=== PATIENT | female | born 1985 | race Caucasian/White ===

== ENCOUNTER 2017-01-13 01:27 | Inpatient (IN) | payer OTHER ==
[~2017-01-13] VITALS: Ht 160 cm; Wt 144.8 kg
[~2017-01-13 01:27] MED LIST: PREN1CAP12 ODT; [UNRECOGNIZED DRUG - CODE] ODT
[2017-01-13 01:37] VITALS: Ht 160 cm; Wt 144.8 kg
[2017-01-13 01:38] VITALS: BP 123/64; PULSE 92; RESP 18
[2017-01-13] MEDS ORDERED: OXYTOCIN 30 UNITS/LR 500 ML IV PRN (02:00)
[2017-01-13] MEDS ORDERED: METHYLERGONOVINE 0.2 MG INJ IM PRN ×2 (02:00→06:30)
[2017-01-13] MEDS ORDERED: OXYTOCIN 30 UNITS/LR 500 ML IV SCH (02:00)
[2017-01-13] MEDS ORDERED: CARBOPROST 250 MCG INJ IM PRN ×2 (02:00→06:30)
[2017-01-13] MEDS ORDERED: CEFAZOLIN 2 GM/50 ML (PMX) 50 ML IV SCH (02:00)
[2017-01-13] MEDS ORDERED: MISOPROSTOL 200 MCG TAB PR PRN ×2 (02:00→06:30)
--- NOTE | 2017-01-13 02:03 | HP ---
Date/Time of Note Date/Time of Note DATE: 01/13/17 TIME: 01:59 OB - History Hx of Present Free Text/Dictation 31-year-old with IUP at 38 weeks and 4 days with care with [facility] presented with complaint of painful contractions. Her antepartum course complicated by GDM A1 as well as morbid obesity. Her AZALEA is January 23, 2017. Her GDM was diet-controlled. Her latest hemoglobin A1c was 5.7. She also desires to have bilateral tubal sterilization and has signed her consent and her visits. She was noted to have regular contractions every 2-3 minutes. Chief Complaint: Labor pain Estimated Due Date: Jan 23, 2017 : 5 Para: 4 Spontaneous : 0 Therapeutic : 0 Care: Good Care Obstetrical Complications: Gestational Diabetes Other Concerns: Morbid obesity Past Family/Social History * Past Medical, Surgical, Family and Obstetric Histories reviewed from chart. Blood Type: O+ Rubella: immune RPR/VDRL: Negative GBS Status: Unknown HBsAG: Negative OB Admission Exam Vital Signs Vital Signs Vital Signs Date Time Temp Pulse Resp B/P Pulse Ox O2 Delivery O2 Flow Rate FiO2 01/13/17 01:38 98.3 92 18 123/64 Room Air Physical Exam HEENT: WNL Heart: Rhythm Normal Lungs: Clear Abdomen: WNL Extremities: Edema (3+ bilateral symmetric nonpitting edema on lower extremity) Reflexes: Normal Cervical Dilatation: 1cm Effacement: 25% Station: -2 Membranes: Intact Heart Rate: 120's Accelerations: Accelerations Present Decelerations: Variable Decelerations Varibility: Moderate Contractions on Admission: < 5 Minutes Apart Intensity: Moderate OB Assessment/Plan Other Assessment: IUP at 38 weeks and 4 days History of prior Painful uterine contractions, desires to proceed with repeat section and bilateral tubal sterilization Risk and benefits of section including risk of infection, bleeding damage to surrounding structures including bowel and bladder and risk of blood transfusion including but not limited to blood borne infection including HIV, hepatitis B and C and transfusion reaction discussed with the patient in detail and informed consent was obtained. Risk of tubal sterilization including risk of failure as well as risk of ectopic for any failure occurs as well discussed with the patient. Patient verbalized understanding and all questions were answered to the patient' s best satisfaction. OR anesthesia and NICU were notified RITU CHANEY MD Jan 13, 2017 02:03
[2017-01-13] MEDS ORDERED: LACTATED RINGER'S 1,000 ML IV SCH (02:14)
[2017-01-13 02:22] LABS: ADD SCAN DIFF NO
[2017-01-13 02:24] LABS: BASOPHILS % 0.1 % (0.0-2.0); EOSINOPHILS # 0.1 10^3/ul (0.0-0.5); EOSINOPHILS % 0.7 % (0.0-7.0); HEMATOCRIT 36.5 % (37.0-47.0); LYMPHOCYTES # 1.7 10^3/ul (0.8-2.9); LYMPHOCYTES % 16.6 % (15.0-51.0); MEAN CORPUSCULAR HEMOGLOBIN 27.3 pg (29.0-33.0); MEAN CORPUSCULAR HGB CONC 32.9 g/dl (32.0-37.0); MEAN PLATELET VOLUME 11.5 fl (7.4-10.4); MONOCYTE # 0.7 10^3/ul (0.3-0.9); MONOCYTES % 6.9 % (0.0-11.0); NEUTROPHIL # 7.9 10^3/ul (1.6-7.5); NEUTROPHILS % 75.2 % (39.0-77.0); PLATELET COUNT 302 10^3/UL (140-415); RED CELL DISTRIBUTION WIDTH 15.5 % (11.5-14.5); WHITE BLOOD COUNT 10.5 10^3/ul (4.8-10.8)
[2017-01-13] MEDS ORDERED: ONDANSETRON 4 MG INJ IV PRN ×2 (02:30→06:30)
[2017-01-13] MEDS ORDERED: CITRIC ACID/NA CITRATE 30 ML CUP PO ONE (02:30)
[2017-01-13 02:35] LABS: INR 0.92; PROTIME 12.4 Sec (12.2-14.2)
[2017-01-13 02:36] LABS: PARTIAL THROMBOPLASTIN TIME 31.6 Sec (25.0-35.0)
--- NOTE | 2017-01-13 02:46 | TRIAGE ---
OB Triage Datetime Report Generated by CPN: 01/13/2017 02:46 Datetime: 01/13/2017 02:31 Assessment Type: Admission Assessment Maternal Assessment Level of Consciousness: Fully Conscious DTR's/Clonus: DTRs 2+ Headache: Denies Blurred Vision: Yes Breath Sounds, Left: Clear and Equal Breath Sounds, Right: Clear and Equal Nausea/Vomiting: Denies RUQ Epigastric Pain: Denies Lower Extremities Edema: None Degree: None Upper Extremities Edema: None Degree: None Facial Edema: None Labor Evaluation Frequency: 2-3 Duration (sec)2399: 60-80 Quality: Mild Pattern: Normal: <= 5 Contractions in 10 Minutes Pain Assessment Pain Scale: 7 Pain Presence: Intermittent Pain Type: Burning; Cramping; Sharp Membrane Status: Intact Datetime: 01/13/2017 02:20 Stage of : OB Triage Labor Evaluation Frequency: 2-3 Monitor Mode: External Duration (sec)2399: 50-80 Quality: Mild Pattern: Normal: <= 5 Contractions in 10 Minutes Resting Tone Forman: Relaxed Heart Rate FHR Baseline Rate: 140 Monitor Mode: External US Variability: Moderate 6-25 bpm Accelerations: 15X15 Decelerations: None Category: Category I Pain Assessment Pain Scale: 6 Pain Presence: Intermittent Pain Type: Cramping Pain Location: Abdomen Pain Relief Measures: Comfort Measures Datetime: 01/13/2017 02:15 Membrane Status: Intact Datetime: 01/13/2017 01:49 Assessment Type: Triage Maternal Assessment Level of Consciousness: Fully Conscious Headache: Denies Blurred Vision: No Respiratory Effort: Unlabored; Regular Rhythm; Equal Expansion Breath Sounds, Left: Clear and Equal Breath Sounds, Right: Clear and Equal Nausea/Vomiting: Denies RUQ Epigastric Pain: Denies Lower Extremities Edema: Bilateral Lower Extremities Upper Extremities Edema: Bilateral Upper Extremities (Annotations: MORBIDLY OBESE PT.) Facial Edema: None Fall Risk Assessment History of Falling: (0) No Secondary Diagnosis: (0) No Ambulatory Aid: (0) Bedrest/Nurse Assist IV Therapy: (0) No Gait: (0) Normal/Bedrest/Immobile Mental Status: (0) Oriented to Own Ability Fall Score: 0 Fall Risk Score Definition: No Risk: No action required Datetime: 01/13/2017 01:45 Time of Arrival: 01/13/2017 01:23 EGA: 38.4 Arrived By: Wheelchair Arrived From: Home Chief Complaint: CXS SINCE 2129 Movement: Present Contractions: Regular Time Contractions Began: 01/12/2017 21:30 Contractions: 2 MIN Rupture of Membranes: Unsure Vaginal Bleeding: None Vaginal Discharge: Present Patient Complaints: Contractions Time Provider Notified: 01/13/2017 01:40 Provider Notified: SHIV Initial Plan: EFM, ASSESSMENT, VE, CALLMD FOR ORDERS Datetime: 01/13/2017 01:39 Vaginal Exam Dilatation (cms): 1.0 Effacement (%): 30 Station: -3 Exam By: HUA Vaginal Bleeding: None Cervix, Consistency: Moderate Cervix, Position: Midposition
[2017-01-13] MEDS ORDERED: LACTATED RINGER'S 1,000 ML IV PRN (03:00)
[2017-01-13] MEDS ORDERED: morphine SULFATE/PF (10 MG/10 ML) INJ ONE (04:26)
[2017-01-13] MEDS ORDERED: FENTAnyl 50 MCG/ML VIAL ONE (04:26)
[2017-01-13] MEDS ORDERED: CEFAZOLIN 1 GM INJ ONE (05:07)
[2017-01-13] MEDS ORDERED: METOCLOPRAMIDE 10 MG INJ ONE (05:07)
[2017-01-13] MEDS ORDERED: PHENYLephrine (100 MCG/ML) 5ML SYG ONE ×2 (05:10→05:48)
--- NOTE | 2017-01-13 06:04 | OPR ---
Operative Report Planned Procedure Free Text/Dictation Patient with history of and at 38+ weeks with a complaint of painful contractions and for that reason she was candidate for urgent repeat section. She desires to proceed with bilateral tubal sterilization. Has signed consent for BTL in her visits. Discussed with the patient about the risk and benefit of procedure including risk of infection, bleeding damage to surrounding structures including bowel and bladder and risk of blood transfusion including but not limited to blood borne infection including HIV hepatitis B and C and transfusion reactions. Patient In case necessary. Risk of bilateral tubal sterilization including risk of failure less than 1% as well as risk of ectopic for any failure occurs discussed in detail. Informed consent was obtained. All questions were answered the patient's best satisfaction. Procedure date Jan 13, 2017 Procedure(s) Repeat section via Pfannenstiel skin incision and bilateral tubal sterilization with Sarai technique Performed by: RITU CHANEY MD Assisting provider: QUAN SAWYER MD Anesthesiologist: JOANN ALVARES MD Pre-procedure diagnosis IUP at 38 + weeks History of previous section desires to proceed with repeat section and bilateral tubal sterilization Anesthesia Type: spinal Procedure Description Under satisfactory [spinal] anesthesia, the patient was prepped and draped and placed in a supine position, tilted to the left. Pfannenstiel incision was made , carried through the subcutaneous tissue. Bleeders brought under control with electrocautery. Fascia incised to the length of the incision. Rectus muscles from the fascia, divided midline. Peritoneum exposed, entered through a transverse incision. Exploration of abdomen revealed gravid uterus. Bladder flap was developed. Transverse incision was made in the lower segment of the uterus. Amniotic sac ruptured. Particulate meconium amniotic fluid noted. Baby was in vertex presentation. Baby's head was brought up the incision and was delivered while the certified first assistant was pushing fundal pressure. After delivery of the head delivery of the anterior shoulder and then position within the rest of the body with gentle traction while the certified first assistant was applying fundal pressure was performed. And the baby delivered. Cord was clamped and cut. True knot was noted in the cord. Nasal oropharyngeal suction was performed. The baby was handed to the team for immediate attention. The placenta was delivered manually intact. Uterine cavity was cleaned with wet sponge and drainage established. Uterus closed in 2 layers using [1-0 Monocryl] in continuous fashion. The first layer used for hemostasis and the second layer used for imbrication peritoneal cavity irrigated with warm saline. Sponge, needle and instrument count reported to be correct. Abdominal peritoneum closed with [2-0 Vicryl] continuously. Rectus muscle approximated with 2-0 Vicryl. Fascia closed with 1-0 Vicryl, and skin closed with 3-0 Monocryl in a subcutaneous fashion. Estimated blood loss 500 mL. Post-Procedure Findings: Live Baby [], Apgars [] and [], weight [], position [], [] presentation []cord. Specimen description Cord blood Complications: None Pt Condition post procedure: stable Disposition: PACU Physician Certification I, the undersigned physician, hereby certify that I have discussed the procedure described in this consent form with this patient (or the patient's legal floor representative), including: * The risk and benefits of the procedure; * Any adverse reactions that may reasonably be expected to occur; * Any alternative efficacious methods of treatment which may be medically viable ; * The potential problems that may occur during recuperation; * Potential for blood transfusion and associated risks/benefits; and * Any research or economic interest I may have regarding this treatment. I further certify that the patient/legally responsible person was encouraged to ask question and that all questions were answered. RITU CHANEY MD Jan 13, 2017 06:04
[2017-01-13] MEDS ORDERED: PROCHLORPERAZINE 10 MG INJ IV PRN (06:30)
[2017-01-13] MEDS ORDERED: LANOLIN 7 GM TUBE TOP PRN (06:30)
[2017-01-13] MEDS ORDERED: HYDROmorphONE 1 MG/ML SYG IV PRN ×2 (06:30)
[2017-01-13] MEDS ORDERED: NALOXONE (0.4 MG/ML) INJ IV PRN (06:30)
[2017-01-13] MEDS ORDERED: DIPHENHYDRAMINE 50 MG INJ IV PRN (06:30)
[2017-01-13] MEDS: OXYTOCIN 30 UNITS/LR 500 ML IV PRN ×2 (09:00→14:06)
[2017-01-13 09:15] VITALS: BP 112/67; PULSE 85; RESP 20
[2017-01-13] MEDS: LACTATED RINGER'S 1,000 ML IV SCH ×3 (10:08→17:47)
[2017-01-13] MEDS: HEPARIN 5,000 UNIT/0.5 ML SYG SC SCH ×2 (10:09→22:36)
[2017-01-13 13:00] LABS: ADD SCAN DIFF NO
[2017-01-13 13:05] LABS: BASOPHILS % 0.1 % (0.0-2.0); EOSINOPHILS # 0.1 10^3/ul (0.0-0.5); EOSINOPHILS % 0.4 % (0.0-7.0); HEMATOCRIT 33.9 % (37.0-47.0); HEMOGLOBIN 11.1 g/dl (12.0-16.0); LYMPHOCYTES # 1.5 10^3/ul (0.8-2.9); LYMPHOCYTES % 12.6 % (15.0-51.0); MEAN CORPUSCULAR HEMOGLOBIN 27.3 pg (29.0-33.0); MEAN CORPUSCULAR HGB CONC 32.7 g/dl (32.0-37.0); MEAN CORPUSCULAR VOLUME 83.3 fl (82.0-101.0); MEAN PLATELET VOLUME 11.4 fl (7.4-10.4); MONOCYTE # 0.6 10^3/ul (0.3-0.9); MONOCYTES % 5.3 % (0.0-11.0); NEUTROPHIL # 9.5 10^3/ul (1.6-7.5); NEUTROPHILS % 81.1 % (39.0-77.0); PLATELET COUNT 249 10^3/UL (140-415); RED BLOOD COUNT 4.07 10^6/ul (4.20-5.40); RED CELL DISTRIBUTION WIDTH 15.2 % (11.5-14.5); WHITE BLOOD COUNT 11.7 10^3/ul (4.8-10.8)
[2017-01-13] MEDS: KETOROLAC 30 MG INJ IV PRN ×2 (14:07→21:50)
[2017-01-13 16:45] VITALS: BP 98/55; RESP 18
[2017-01-13 19:30] VITALS: BP 100/53; PULSE 90; RESP 18
[2017-01-14] MEDS: LACTATED RINGER'S 1,000 ML IV SCH ×3 (01:50→21:55)
[2017-01-14 04:00] VITALS: BP 108/55; PULSE 88; RESP 19
[2017-01-14] MEDS: IBUPROFEN 600 MG TAB PO SCH ×3 (05:36→18:05)
[2017-01-14 09:18] VITALS: BP 117/57; PULSE 97; RESP 20
[2017-01-14] MEDS: OXYCODONE/ACETAMINOPHEN (5/325) TAB PO PRN ×3 (09:31→18:06)
[2017-01-14] MEDS: HEPARIN 5,000 UNIT/0.5 ML SYG SC SCH ×2 (09:32→21:54)
[2017-01-14 11:38] LABS: ADD SCAN DIFF NO
[2017-01-14 11:42] LABS: BASOPHILS % 0.2 % (0.0-2.0); EOSINOPHILS # 0.1 10^3/ul (0.0-0.5); EOSINOPHILS % 0.5 % (0.0-7.0); HEMATOCRIT 30.9 % (37.0-47.0); HEMOGLOBIN 10.2 g/dl (12.0-16.0); LYMPHOCYTES # 1.3 10^3/ul (0.8-2.9); LYMPHOCYTES % 11.4 % (15.0-51.0); MEAN CORPUSCULAR HEMOGLOBIN 27.6 pg (29.0-33.0); MEAN CORPUSCULAR VOLUME 83.5 fl (82.0-101.0); MEAN PLATELET VOLUME 10.8 fl (7.4-10.4); MONOCYTE # 0.6 10^3/ul (0.3-0.9); MONOCYTES % 4.9 % (0.0-11.0); NEUTROPHIL # 9.5 10^3/ul (1.6-7.5); NEUTROPHILS % 82.5 % (39.0-77.0); PLATELET COUNT 221 10^3/UL (140-415); RED CELL DISTRIBUTION WIDTH 15.5 % (11.5-14.5); WHITE BLOOD COUNT 11.5 10^3/ul (4.8-10.8)
[2017-01-14 12:30] VITALS: BP 120/76; PULSE 69; RESP 20
[2017-01-14] MEDS: GUAIFENESIN/DM 5ML CUP PO PRN (14:16)
--- NOTE | 2017-01-14 14:54 | PN ---
Date/Time of Note Date/Time of Note DATE: 01/14/17 TIME: 14:52 OB Subjective Subjective Subjective Post day 1 Vital signs stable afebrile abdomen soft bowel sounds present abdomen mildly distended lochia moderate extremity normal patient has no nausea or vomiting advised advance diet when able to release for at bedtime continue ambulation Laboratory Tests Test 01/14/17 11:26 White Blood Count 11.510^3/ul Red Blood Count 3.7010^6/ul Hemoglobin 10.2g/dl Hematocrit 30.9% Mean Corpuscular Volume 83.5fl Mean Corpuscular Hemoglobin 27.6pg Mean Corpuscular Hemoglobin Concent 33.0g/dl Red Cell Distribution Width 15.5% Platelet Count 44439^3/UL Mean Platelet Volume 10.8fl Neutrophils % 82.5% Lymphocytes % 11.4% Monocytes % 4.9% Eosinophils % 0.5% Basophils % 0.2% Nucleated Red Blood Cells % 0.0/100WBC Neutrophils # 9.510^3/ul Lymphocytes # 1.310^3/ul Monocytes # 0.610^3/ul Eosinophils # 0.110^3/ul Basophils # 0.010^3/ul Nucleated Red Blood Cells # 0.010^3/ul Current Medications Medications (Trade) Dose Ordered Sig/Faustino Route PRN Reason Start Time Stop Time Status Last Admin Dose Admin Cefazolin Sodium/ Dextrose 50 ml @ 100 mls/hr ONCE IV 01/13/17 02:00 01/13/17 06:07 DC Oxytocin/Lactated Ringer's 500 ml @ 125 mls/hr ONCE IV 01/13/17 02:00 01/13/17 06:07 DC Oxytocin/Lactated Ringer's 500 ml @ 0 mls/hr ONCE PRN IV For Hemorrhage Management 01/13/17 02:00 01/13/17 06:07 DC Methylergonovine Maleate (Methergine) 0.2 mg ONCE PRN IM VAGINAL BLEEDING 01/13/17 02:00 01/13/17 06:07 DC Carboprost Tromethamine (Hemabate) 250 mcg ONCE PRN IM VAGINAL BLEEDING 01/13/17 02:00 01/13/17 06:07 DC Misoprostol 1000 mcg 1,000 mcg ONCE PRN VT VAGINAL BLEEDING 01/13/17 02:00 01/13/17 06:07 DC Lactated Ringer's 1,000 ml @ 2,000 mls/hr Q30M PRN IV PRE-EPIDURAL BOLUS 01/13/17 03:00 01/13/17 06:07 DC 01/13/17 03:52 Lactated Ringer's (Lr) 1,000 ml @ 125 mls/hr Q8H IV 01/13/17 02:14 01/13/17 06:07 DC 01/13/17 03:29 Ondansetron HCl (Zofran Inj) 4 mg ONCE PRN IV NAUSEA AND/OR VOMITING 01/13/17 02:30 01/13/17 06:07 DC 01/13/17 03:50 Citric Acid/ Sodium Citrate (Bicitra) 30 ml ONCE ONCE PO 01/13/17 02:30 01/13/17 03:17 DC 01/13/17 03:50 Morphine Sulfate (Duramorph) 10 mg STK-MED ONCE .ROUTE 01/13/17 04:26 01/13/17 04:27 DC Fentanyl (Sublimaze) 100 mcg STK-MED ONCE .ROUTE 01/13/17 04:26 01/13/17 04:27 DC Cefazolin Sodium (Ancef) 1 gm STK-MED ONCE .ROUTE 01/13/17 05:07 01/13/17 05:08 DC Metoclopramide HCl (Reglan) 10 mg STK-MED ONCE .ROUTE 01/13/17 05:07 01/13/17 05:08 DC Phenylephrine HCl (Abran-Synephrine Inj Syg) 500 mcg STK-MED ONCE .ROUTE 01/13/17 05:10 01/13/17 05:11 DC Phenylephrine HCl 500 mcg 500 mcg STK-MED ONCE .ROUTE 01/13/17 05:48 01/13/17 05:49 DC Lactated Ringer's (Lr) 1,000 ml @ 125 mls/hr Q8H IV 01/13/17 06:04 01/14/17 01:50 Ibuprofen (Motrin) 600 mg Q6 PO 01/14/17 06:00 01/14/17 13:42 Simethicone (Mylicon) 160 mg Q8H PRN PO DISTENSION/GAS/BLOATING 01/13/17 06:30 01/14/17 09:31 Lanolin (Gza-L-Ifrwok) 1 applic BEDSIDE MEDICATION PRN TOP BEDSIDE FOR TWYLA TO NIPPLES 01/13/17 06:30 Diphtheria/ Tetanus/Acell Pertussis (Adacel) 0.5 ml ONCE ONCE IM* 01/16/17 09:00 01/16/17 09:01 Measles/Mumps/ Rubella Vaccine Live (Mmr Ii Vaccine) 0.5 ml ONCE ONCE SC* 01/16/17 09:00 01/16/17 09:01 Heparin Sodium (Porcine) 5000 unit 5,000 unit Q12 SC 01/13/17 09:00 01/14/17 09:32 Oxytocin/Lactated Ringer's 500 ml @ 0 mls/hr ONCE PRN IV For Hemorrhage Management 01/13/17 06:30 01/13/17 14:06 Methylergonovine Maleate (Methergine) 0.2 mg ONCE PRN IM VAGINAL BLEEDING 01/13/17 06:30 Carboprost Tromethamine (Hemabate) 250 mcg ONCE PRN IM VAGINAL BLEEDING 01/13/17 06:30 Misoprostol (Cytotec) 1,000 mcg ONCE PRN VT VAGINAL BLEEDING 01/13/17 06:30 Naloxone HCl (Narcan) 0.1 mg Q2M PRN IV FOR RESP RATE 8 OR LESS 01/13/17 06:30 01/14/17 05:02 DC Ketorolac Tromethamine (Toradol) 30 mg Q6H PRN IV PAIN 01/13/17 06:30 01/14/17 05:02 DC 01/13/17 21:50 Hydromorphone HCl (Dilaudid) 0.2 mg Q3H PRN IV PAIN LEVEL 1-5 01/13/17 06:30 01/14/17 05:02 DC Hydromorphone HCl (Dilaudid) 0.4 mg Q3H PRN IV PAIN LEVEL 6-10 01/13/17 06:30 01/14/17 05:02 DC Diphenhydramine HCl (Benadryl) 25 mg Q6H PRN IV ITCHING 01/13/17 06:30 01/14/17 05:02 DC Ondansetron HCl (Zofran Inj) 4 mg Q6H PRN IV NAUSEA AND/OR VOMITING 01/13/17 06:30 01/14/17 05:02 DC Prochlorperazine (Compazine Inj) 10 mg ONCE PRN IV NAUSEA AND/OR VOMITING 01/13/17 06:30 01/14/17 05:02 DC Miscellaneous Information (* Miscellaneous Pharmacy Order) Duramorph: 0.2 mg ... GIVEN XX 01/13/17 06:30 Oxycodone/ Acetaminophen (Percocet (5/ 325)) 2 tab Q4H PRN PO PAIN 01/14/17 06:00 01/14/17 13:42 Guaifenesin/ Dextromethorphan (Robitussin Dm Liquid Cup) 5 ml Q4H PRN PO coughing 01/14/17 14:00 01/14/17 14:16 JUSTEN KAISER MD Jan 14, 2017 14:54
[2017-01-14 17:34] VITALS: BP 119/78; PULSE 80; RESP 19
[2017-01-14 19:40] VITALS: BP 113/60; PULSE 89; RESP 18
[2017-01-15] MEDS: IBUPROFEN 600 MG TAB PO SCH ×4 (00:14→17:45)
[2017-01-15] MEDS: OXYCODONE/ACETAMINOPHEN (5/325) TAB PO PRN ×5 (00:39→20:45)
[2017-01-15] MEDS: GUAIFENESIN/DM 5ML CUP PO PRN ×3 (00:43→18:51)
[2017-01-15 04:11] VITALS: BP 108/59; PULSE 91; RESP 18
[2017-01-15] MEDS: LACTATED RINGER'S 1,000 ML IV SCH ×3 (05:41→22:04)
[2017-01-15 08:00] VITALS: BP 121/71; PULSE 91; RESP 17
[2017-01-15] MEDS: HEPARIN 5,000 UNIT/0.5 ML SYG SC SCH ×2 (09:00→22:21)
--- NOTE | 2017-01-15 12:49 | PN ---
Date/Time of Note Date/Time of Note DATE: 01/15/17 TIME: 12:48 OB Subjective Subjective Subjective Post day 2 abdomen soft incision dry bowel sounds present patient had normal bowel movement extremity normal plan of a.m. discharge discussed JUSTEN KAISER MD Jan 15, 2017 12:49
[2017-01-15 19:40] VITALS: BP 132/70; PULSE 92; RESP 18
[2017-01-16] MEDS: IBUPROFEN 600 MG TAB PO SCH ×3 (00:07→13:17)
[2017-01-16 04:06] VITALS: BP 117/58; PULSE 76; RESP 18
[2017-01-16] MEDS: OXYCODONE/ACETAMINOPHEN (5/325) TAB PO PRN ×2 (04:06→14:36)
[2017-01-16] MEDS: LACTATED RINGER'S 1,000 ML IV SCH ×2 (06:04→14:04)
[2017-01-16] MEDS: GUAIFENESIN/DM 5ML CUP PO PRN ×2 (06:46→15:02)
[2017-01-16 08:25] VITALS: BP 131/75; PULSE 88; RESP 18
[2017-01-16] MEDS ORDERED: DIPHTH/TET/ACEL PERTUSS (ADULT) 0.5 ML VIAL IM* ONE (09:00)
[2017-01-16] MEDS ORDERED: MEASLES,MUMPS,RUBELLA VACCINE INJ SC* ONE (09:00)
--- NOTE | 2017-01-16 10:29 | QN ---
Documentation Comment POD#3 is stable afebrile tolerates diet No VB +BM +voids Asymptomatic no sign of depression VS Stable Gen NAD Abd soft NT ND Incision intact Genitalia No blood at perinium --->Discharge plan ROGER MCKEE M.D. Jan 16, 2017 10:29
--- NOTE | 2017-01-16 10:30 | DS ---
Date/Time of Note Date/Time of Note DATE: 01/16/17 TIME: 10:30 Discharge Summary Admission/Discharge Info Admit Date/Time Jan 13, 2017 at 01:41 Discharge Date/Time Final Diagnosis Repeat c/section Labor Patient Condition: Stable Consults repeat c/section +BTL Hospital Course uneventful Home Meds Reported Medications Ferrous Gluconate (Ferrous Gluconate) 325 ( 27 )Mg Tablet, 325 ( ODT DAILY, #1 12/04/13 No.25/Iron/Fa #6/Dha (PRENA1 SOFTGEL) 1 Each Capsule, 1 EACH ODT DAILY 12/04/13 ROGER MCKEE M.D. Jan 16, 2017 10:30
[2017-01-16] MEDS: HEPARIN 5,000 UNIT/0.5 ML SYG SC SCH (10:41)
== END 2017-01-16 15:55 | disposition home or self-care (01) | DRG 766 ==
LOC: L-D 01:27 → OBT 01:27 → L-D 01:41 → PP1 09:19
PROVIDERS: ADMIT Obstetrics & Gynecology; ATTEND Obstetrics & Gynecology
PROC: 10D00Z1 Extraction of Products of Conception, Low, Open Approach (ICD-10-PCS; principal; 2017-01-13)
PROC: 0UB70ZZ Excision of Bilateral Fallopian Tubes, Open Approach (ICD-10-PCS; 2017-01-13)
DX: O34.211 Maternal care for low transverse scar from previous cesarean delivery (principal); Z37.0 Single live birth; Z3A.38 38 weeks gestation of pregnancy
CPT/HCPCS: 36415; 82947; 85025; 85610; 85730; 86592; 86850; 86900; 86901; 87340; 88302; 90715; 94760; 99464; G0463; J0690; J1644; J1885; J2274; J2370; J2405; J2590; J2765; J3010; J7120